=== PATIENT | female | born 1980 | race Caucasian/White ===

== ENCOUNTER 2016-07-19 10:58 | Emergency (ER) | payer OTHER | END 2016-07-19 12:39 | disposition home or self-care (01) | LOC: D.ER 10:58 | DX: T78.49XA Other allergy, initial encounter (principal); X58.XXXA Exposure to other specified factors, initial encounter ==

== ENCOUNTER 2016-08-08 16:56 | Emergency (ER) | payer OTHER | END 2016-08-08 19:20 | disposition home or self-care (01) | LOC: D.ER 16:56 | DX: L50.9 Urticaria, unspecified (principal); F17.200 Nicotine dependence, unspecified, uncomplicated ==